=== PATIENT | male | born 1935 | race Caucasian/White ===

== ENCOUNTER 2017-03-11 03:15 | Inpatient (IN) ==
[2017-03-11] MEDS ORDERED: MECLIZINE 25 MG TABLET PO STA (04:38)
[2017-03-11] MEDS ORDERED: MECLIZINE 25 MG TABLET ONE (05:23)
[2017-03-11 05:34] LABS: Basophils % 0.1 % (0.0-0.8); Eosinophils % 0.4 % (0.00-10.9); Hematocrit 32.7 VOL% (42.0-52.0); Hemoglobin 11.5 GM/DL (14.0-18.0); Immature Granulocytes % 0.5 %; Immature Granulocytes Absolute 0.04 #; Lymphocytes # 0.3 10*3/uL (1.4-4.0); Lymphocytes % 3.2 % (21.2-54.2); Mean Corpuscular HGB Conc 35.2 GM/DL (32-36); Mean Corpuscular Hemoglobin 30 PG (27-34); Mean Corpuscular Volume 85.8 FL (87-102); Mean Platelet Volume 9.2 FL (9.6-12.0); Monocytes # 0.3 10*3/uL (0.11-0.8); Monocytes % 3.4 % (1.7-12.7); Neutrophils # 7.9 10*3/uL (1.4-7.4); Neutrophils % 92.4 % (38.7-73.9); Platelet Count 187 T/CUMM (130-400); Red Blood Count 3.81 MC/CUMM (3.8-5.5); Red Cell Distribution Width 12.6 % (9.3-17.3); White Blood Count 8.5 T/CUMM (4-12)
[2017-03-11 05:56] LABS: Alanine Aminotransferase 16 U/L (16-61); Albumin 3.8 G/DL (3.4-5.0); Alkaline Phosphatase 54 U/L (45-117); Aspartate Amino Transferase 16 U/L (0-37); Blood Urea Nitrogen 22 MG/DL (7-18); Calcium 8.8 MG/DL (8.5-10.1); Glucose 124 MG/DL (74-106); Osmolality,Calculated 278.7 MOS/KG (273-304); Potassium 3.9 MMOL/L (3.5-5.1); Sodium 138 MMOL/L (136-145); Troponin I Only < 0.015 NG/ML (0.00-0.045)
[2017-03-11] MEDS ORDERED: ONDANSETRON 4 MG/2 ML VIAL ONE (06:23)
[2017-03-11 06:33] LABS: Band Neutrophils 4 % (0-10); Eosinophils 1 % (0-10); Lymphocytes 4 % (20-55); Segmented Neutrophils 86 % (50-85); Total Cells Counted 100
[2017-03-11 06:34] LABS: Giant Platelets Few; Hypochromasia 1+; Microcytosis 1+; Ovalocytes Slight; Platelet Estimate Normal
[2017-03-11] MEDS ORDERED: SODIUM CHLORIDE 0.9% 1,000 ML IV STA (06:39)
[2017-03-11] MEDS ORDERED: ONDANSETRON 4 MG/2 ML VIAL IV STA (06:40)
[2017-03-11] MEDS ORDERED: ONDANSETRON 4 MG/2 ML VIAL IV PRN (09:36)
[2017-03-11] MEDS ORDERED: MORPHINE 2 MG/1 ML SYRINGE IV PRN (09:36)
[2017-03-11] MEDS ORDERED: PROMETHAZINE 25 MG/1 ML VIAL IM PRN (09:36)
[2017-03-11] MEDS: DOCUSATE SODIUM 100 MG CAPSULE PO SCH ×2 (10:21→20:49)
[2017-03-11] MEDS ORDERED: INFLUENZA VIRUS VACCINE 0.5 ML SYRINGE IM ONE (11:00)
[2017-03-11] MEDS: ENOXAPARIN 40 MG/0.4 ML SYRINGE SUBCUT SCH (11:08)
[2017-03-11] MEDS: SODIUM CHLORIDE 0.9% 1,000 ML IV SCH ×3 (11:08→21:53)
[2017-03-11 12:29] LABS: Magnesium 2.2 MG/DL (1.8-2.4); Risk Ratio 2.88; Thyroid Stimulating Hormone 0.584 uIU/ml (0.358-3.74); VLDL CHOLESTEROL 23.4 MG/DL
[2017-03-11 15:27] LABS: Apearance,Urine CLEAR (Clear); Bilirubin,Urine Negative (Negative); Blood, Urine Small mg/dL (Negative); Glucose,Urine (UA) Negative (Negative); Ketones,Urine Negative (Negative); Mucus,Urine Occasional /LPF (Occasional); Nitrite,Urine Negative (Negative); Protein,Urine Negative; RBC,Urine <1 /HPF (0-4); Urine Color Yellow (Yellow); Urine Specific Gravity 1.018 (1.001-1.035); Urine Urobilinogen < 2.0 EU/DL (0.2-1.0); WBC,Urine <1 /HPF (0-6)
[2017-03-11] MEDS: cefTRIAXone 1,000 MG in SYRINGE 1 EACH IV SCH (16:27)
[2017-03-11] MEDS ORDERED: ACETAMINOPHEN 325 MG TABLET PO PRN (17:37)
[2017-03-11] MEDS: MECLIZINE 25 MG TABLET PO SCH (20:48)
[2017-03-12] MEDS: SODIUM CHLORIDE 0.9% 1,000 ML IV SCH ×2 (03:04→14:22)
[2017-03-12] MEDS: cefTRIAXone 1,000 MG in SYRINGE 1 EACH IV SCH ×2 (03:20→14:21)
[2017-03-12 07:25] LABS: Basophils % 0.5 % (0.0-0.8); Eosinophils % 0.2 % (0.00-10.9); Hemoglobin 10.3 GM/DL (14.0-18.0); Immature Granulocytes % 0.7 %; Immature Granulocytes Absolute 0.03 #; Lymphocytes % 24.7 % (21.2-54.2); Mean Corpuscular HGB Conc 34.3 GM/DL (32-36); Mean Corpuscular Hemoglobin 30 PG (27-34); Mean Platelet Volume 9.6 FL (9.6-12.0); Monocytes # 0.4 10*3/uL (0.11-0.8); Monocytes % 8.6 % (1.7-12.7); Neutrophils # 2.8 10*3/uL (1.4-7.4); Neutrophils % 65.3 % (38.7-73.9); Platelet Count 150 T/CUMM (130-400); Red Blood Count 3.41 MC/CUMM (3.8-5.5); Red Cell Distribution Width 12.9 % (9.3-17.3); White Blood Count 4.2 T/CUMM (4-12)
[2017-03-12 07:53] LABS: Blood Urea Nitrogen 14 MG/DL (7-18); Calcium 7.9 MG/DL (8.5-10.1); Glucose 92 MG/DL (74-106); Magnesium 2.3 MG/DL (1.8-2.4); Osmolality,Calculated 281.3 MOS/KG (273-304); Potassium 3.6 MMOL/L (3.5-5.1); Sodium 141 MMOL/L (136-145); Troponin I Only < 0.015 NG/ML (0.00-0.045)
[2017-03-12] MEDS: MECLIZINE 25 MG TABLET PO SCH ×2 (09:07→14:21)
[2017-03-12] MEDS: DOCUSATE SODIUM 100 MG CAPSULE PO SCH (09:07)
[2017-03-12] MEDS: ENOXAPARIN 40 MG/0.4 ML SYRINGE SUBCUT SCH (09:07)
[2017-03-12 12:01] VITALS: BP 118/61
== END 2017-03-12 16:05 | disposition home or self-care (01) | DRG 392 ==
LOC: EDUNIT# → EDBD → N.ED 03:15 → N.EDINP 06:39 → N.5E 08:44
PROVIDERS: ADMIT Internal Medicine; ATTEND Internal Medicine

== ENCOUNTER 2019-08-15 10:52 | Observation (INO) ==
[2019-08-15] MEDS ORDERED: MORPHINE 4 MG/1 ML VIAL IV STA (11:07)
[2019-08-15] MEDS ORDERED: ONDANSETRON 4 MG/2 ML VIAL ONE (11:09)
[2019-08-15 11:15] LABS: Basophils % 0.5 % (0.0-0.8); Eosinophils # 0.2 10*3/uL (0.0-0.87); Hematocrit 32.1 VOL% (42.0-52.0); Hemoglobin 10.7 GM/DL (14.0-18.0); Immature Granulocytes % 0.5 %; Immature Granulocytes Absolute 0.03 #; Lymphocytes # 2.1 10*3/uL (1.4-4.0); Lymphocytes % 31.3 % (21.2-54.2); Mean Corpuscular HGB Conc 33.3 GM/DL (32-36); Mean Corpuscular Volume 90.7 FL (87-102); Mean Platelet Volume 9.3 FL (9.6-12.0); Monocytes % 6.9 % (1.7-12.7); Neutrophils % 57.8 % (38.7-73.9); Platelet Count 189 T/CUMM (130-400); Red Blood Count 3.54 MC/CUMM (3.8-5.5); Red Cell Distribution Width 12.9 % (9.3-17.3); White Blood Count 6.6 T/CUMM (4-12)
[2019-08-15] MEDS ORDERED: DIPH/TET/ACEL PERT BOOSTER VACCINE 0.5 ML VIAL IM ONE (11:20)
[2019-08-15] MEDS ORDERED: LACTATED RINGERS 1,000 ML IV SCH (11:30)
[2019-08-15 11:32] LABS: Calcium 8.9 MG/DL (8.5-10.1); Osmolality,Calculated 279.4 MOS/KG (273-304)
[2019-08-15] MEDS ORDERED: ONDANSETRON 4 MG/2 ML VIAL IV PRN (15:59)
[2019-08-15] MEDS ORDERED: PROMETHAZINE 25 MG/1 ML VIAL IM PRN (15:59)
[2019-08-15] MEDS ORDERED: ACETAMINOPHEN 325 MG TABLET PO PRN (15:59)
[2019-08-15] MEDS: LACTATED RINGERS 1,000 ML IV SCH (17:34)
[2019-08-15] MEDS: BACITRACIN/POLYMYXIN OINT 14.17 GM TUBE TOP SCH (20:54)
[2019-08-15] MEDS ORDERED: SIMVASTATIN 40 MG TABLET PO SCH (21:00)
[2019-08-15] MEDS ORDERED: FINASTERIDE 5 MG TABLET PO SCH (21:00)
[2019-08-15] MEDS ORDERED: lisinopriL 10 MG TABLET PO SCH (21:00)
[2019-08-15] MEDS ORDERED: ASPIRIN 325 MG TABLET PO SCH (21:00)
[2019-08-15] MEDS ORDERED: NF- (Cyanocobalamin (Vitamin B-12) [Vitamin B-12] 5,000 MCG) SL SCH (21:00)
[2019-08-16] MEDS: LACTATED RINGERS 1,000 ML IV SCH (00:45)
[2019-08-16] MEDS ORDERED: ENOXAPARIN 40 MG/0.4 ML SYRINGE SUBCUT SCH (07:00)
[2019-08-16 08:27] VITALS: BP 135/53
[2019-08-16] MEDS ORDERED: PANTOPRAZOLE 40 MG TABLET PO SCH (09:00)
[2019-08-16] MEDS: BACITRACIN/POLYMYXIN OINT 14.17 GM TUBE TOP SCH (09:45)
== END 2019-08-16 10:17 | disposition home or self-care (01) ==
LOC: N.ED 10:52 → N.EDINP 10:52 → N.3E 15:57
PROVIDERS: ADMIT Surgery; ATTEND Surgery